=== PATIENT | female | born 1990 ===

== ENCOUNTER 2017-01-08 04:26 | Emergency (ER) | payer OTHER ==
[~2017-01-08] VITALS: Ht 157.5 cm; Wt 54.4 kg
[~2017-01-08 04:26] MED LIST: EXPECTA PRENAT1 EACH PO; VITAFOL-OB+DHA1 EACH PO
[2017-01-08] MEDS ORDERED: ONDANSETRON ODT8 MG PO (05:46)
== END 2017-01-08 06:16 | disposition home or self-care (01) ==
LOC: ED 04:26
DX: R50.9 Fever, unspecified (principal); M79.1 Myalgia
CPT/HCPCS: 80053; 81001; 84703; 85025; 99283; J7030